=== PATIENT | male | born 1995 | race Caucasian/White ===

== ENCOUNTER 2018-05-26 17:24 | Emergency (ER) | payer BC, OTHER ==
[2018-05-26 17:37] VITALS: RESP 16; TEMP 97.8
[2018-05-26] MEDS ORDERED: PANTOPRAZOLE 40 MG/10 ML VIAL IVP STA (18:04)
[2018-05-26] MEDS ORDERED: SODIUM CHLORIDE 0.9% 1,000 ML IV STA (18:04)
[2018-05-26] MEDS ORDERED: KETOROLAC 30 MG/ML 1 ML VIAL IVP STA (18:04)
[2018-05-26] MEDS ORDERED: MAG HYDROX/AL HYDROX/SIMETH 30 ML, HYOSCYAMINE ELIXIR 10 ML, CIMETIDINE HCL 300 MG, LID... PO STA ×4 (18:05)
--- NOTE | 2018-05-26 18:16 | ED ---
General Adult HPI - General Chief complaint: Abdominal Pain Stated complaint: abdominal pain Time Seen by Provider: 05/26/18 17:45 Source: patient Mode of arrival: ambulatory Limitations: no limitations - History of Present Illness Initial comments: 23-year-old male with history of asthma presents to the emergency department for a chief complaint of epigastric pain 24 hours. Patient states this pain started yesterday. Patient states he had an ulcer as a child and states this feels similar to an ulcer in the past. Patient states he went to [facility] and was given a prescription for Bentyl and Zantac but did not take it because he was not familiar with these medications and presented to the emergency department instead. Patient denies nausea or vomiting. Patient describes the pain as a burning pain in nature in the epigastric area. He currently rates the pain as a 4 out of 10. He denies chest pain or any lower abdominal pain. Patient does admit that once he gets hungry he starts to have increased pain. He states that if he eats acidic foods he also adds increased pain. Patient states laying still helps with the pain. Patient denies any lower abdominal pain. Patient does have a history of appendectomy. Patient denies any previous complications with gallbladder. Patient has no other complaints at this time including shortness of breath, chest pain, nausea or vomiting, headache, or visual changes. - Related Data Previous Rx's Medication Instructions Recorded Famotidine [Pepcid] 20 mg PO BID 20 Days tablet 05/26/18 Allergies Allergy/AdvReac Type Severity Reaction Status Date / Time No Known Allergies Allergy Verified 05/26/18 17:45 Review of Systems ROS Statement: Those systems with pertinent positive or pertinent negative responses have been documented in the HPI. ROS Other: All systems not noted in ROS Statement are negative. Past Medical History Past Medical History: Asthma Additional Past Medical History / Comment(s): ulcers History of Any Multi-Drug Resistant Organisms: None Reported Past Surgical History: Appendectomy Past Psychological History: No Psychological Hx Reported Smoking Status: Never smoker Past Alcohol Use History: None Reported Past Drug Use History: Marijuana General Exam Limitations: no limitations General appearance: alert, in no apparent distress Head exam: Present: atraumatic, normocephalic, normal inspection Eye exam: Present: normal appearance, PERRL, EOMI. Absent: scleral icterus, conjunctival injection, periorbital swelling ENT exam: Present: normal exam, mucous membranes moist Neck exam: Present: normal inspection, full ROM. Absent: tenderness, meningismus, lymphadenopathy Respiratory exam: Present: normal lung sounds bilaterally. Absent: respiratory distress, wheezes, rales, rhonchi, stridor Cardiovascular Exam: Present: regular rate, normal rhythm, normal heart sounds. Absent: systolic murmur, diastolic murmur, rubs, gallop, clicks GI/Abdominal exam: Present: soft, tenderness (Minimal epigastric tenderness without rebound or guarding. Negative Nunez sign. No right upper quadrant tenderness noted. No lower abdominal tenderness noted.), normal bowel sounds. Absent: distended, guarding, rebound, rigid Course Vital Signs 05/26/18 05/26/18 17:35 19:25 Temperature 97.8 F Pulse Rate 93 71 Respiratory 16 16 Rate Blood Pressure 122/75 125/73 O2 Sat by Pulse 97 100 Oximetry Medical Decision Making - Medical Decision Making 43-year-old male with a history of ulcer presents to the emergency department for a chief complaint of epigastric pain 24 hours. Patient has not taken any antacids and did not take the prescriptions at [facility] had prescribed about an hour ago. Patient states the pain is worse after eating acidic foods. He denies any lower abdominal pain. Vitals are stable. Exam is unremarkable patient does have minimal epigastric tenderness without guarding. Negative Nunez sign. CBC and CMP are unremarkable. Amylase and lipase are within normal limits. X-ray shows no sign of pneumoperitoneum. Ultrasound shows a negative right upper quadrant abdominal sonogram without gallstones or dilated ducts. Patient was given Protonix and GI cocktail which did help with his pain. Patient will be discharged home with GI follow-up and prescription for Pepcid. He will return if he has any worsening symptoms. - Lab Data Result diagrams: 05/26/18 18:20 05/26/18 18:20 Lab Results 05/26/18 05/26/18 Range/Units 18:20 18:20 WBC 9.7 (3.8-10.6) k/uL RBC 4.90 (4.30-5.90) m/uL Hgb 15.3 (13.0-17.5) gm/dL Hct 45.2 (39.0-53.0) % MCV 92.2 (80.0-100.0) fL MCH 31.2 (25.0-35.0) pg MCHC 33.8 (31.0-37.0) g/dL RDW 12.3 (11.5-15.5) % Plt Count 237 (150-450) k/uL Neutrophils % 70 % Lymphocytes % 22 % Monocytes % 4 % Eosinophils % 2 % Basophils % 1 % Neutrophils # 6.8 (1.3-7.7) k/uL Lymphocytes # 2.2 (1.0-4.8) k/uL Monocytes # 0.4 (0-1.0) k/uL Eosinophils # 0.2 (0-0.7) k/uL Basophils # 0.1 (0-0.2) k/uL Sodium 140 (137-145) mmol/L Potassium 4.1 (3.5-5.1) mmol/L Chloride 104 (98-107) mmol/L Carbon Dioxide 27 (22-30) mmol/L Anion Gap 9 mmol/L BUN 15 (9-20) mg/dL Creatinine 0.76 (0.66-1.25) mg/dL Est GFR (CKD-EPI)AfAm >90 (>60 ml/min/1.73 sqM) Est GFR (CKD-EPI)NonAf >90 (>60 ml/min/1.73 sqM) Glucose 88 (74-99) mg/dL Calcium 9.4 (8.4-10.2) mg/dL Total Bilirubin 0.8 (0.2-1.3) mg/dL AST 28 (17-59) U/L ALT 31 (21-72) U/L Alkaline Phosphatase 53 (38-126) U/L Total Protein 7.1 (6.3-8.2) g/dL Albumin 4.3 (3.5-5.0) g/dL Amylase 69 (30-110) U/L Lipase 273 (23-300) U/L Disposition Clinical Impression: Epigastric pain Disposition: HOME SELF-CARE Condition: Good Instructions: Gastritis (ED) Additional Instructions: Please take Pepcid as directed. Please follow up with GI in 1-2 days. Please return immediately to the emergency department if you have any worsening symptoms. Prescriptions: Famotidine [Pepcid] 20 mg PO BID 20 Days tablet Is patient prescribed a controlled substance at d/c from ED?: No Referrals: lAvarez Lau Jr, DO [Primary Care Provider] - 1-2 days Bob Lisa MD [STAFF PHYSICIAN] - 1-2 days Time of Disposition: 19:50
[2018-05-26 18:39] LABS: Basophils # (A) 0.1 k/uL (0-0.2); Basophils % (A) 1 %; Eosinophils # (A) 0.2 k/uL (0-0.7); Eosinophils % (A) 2 %; HCT 45.2 % (39.0-53.0); HGB 15.3 gm/dL (13.0-17.5); Lymphocytes # (A) 2.2 k/uL (1.0-4.8); Lymphocytes % (A) 22 %; MCH 31.2 pg (25.0-35.0); MCHC 33.8 g/dL (31.0-37.0); MCV 92.2 fL (80.0-100.0); Monocytes # (A) 0.4 k/uL (0-1.0); Monocytes % (A) 4 %; Neutrophils # (A) 6.8 k/uL (1.3-7.7); Neutrophils % (A) 70 %; Platelet Count 237 k/uL (150-450); RDW 12.3 % (11.5-15.5); WBC 9.7 k/uL (3.8-10.6)
[2018-05-26 18:46] LABS: ALT 31 U/L (21-72); AST 28 U/L (17-59); Albumin 4.3 g/dL (3.5-5.0); Alkaline Phosphatase 53 U/L (38-126); Amylase 69 U/L (30-110); Anion Gap 9 mmol/L; Blood Urea Nitrogen 15 mg/dL (9-20); Calcium 9.4 mg/dL (8.4-10.2); Carbon Dioxide 27 mmol/L (22-30); Chloride 104 mmol/L (98-107); Glucose 88 mg/dL (74-99); Lipase 273 U/L (23-300); Potassium 4.1 mmol/L (3.5-5.1); Sodium 140 mmol/L (137-145); Total Bilirubin 0.8 mg/dL (0.2-1.3); Total Protein 7.1 g/dL (6.3-8.2)
--- NOTE | 2018-05-26 18:55 | XR ---
EXAMINATION TYPE: XR abdomen 2V DATE OF EXAM: 05/26/2018 COMPARISON: 02/05/2015 HISTORY: Abdominal pain TECHNIQUE: 2 views upright and supine FINDINGS: There is no sign of intestinal obstruction or pneumoperitoneum. Fecal pattern is normal. Roma ng bases are clear. There are no pathologic calcifications over the kidneys. IMPRESSION: Nonacute abdomen. No change.
--- NOTE | 2018-05-26 18:59 | US ---
EXAMINATION TYPE: US gallbladder DATE OF EXAM: 05/26/2018 COMPARISON: NONE CLINICAL HISTORY: Pain. Burning sensation in abdomen EXAM MEASUREMENTS: Liver Length: 14.6 cm Gallbladder Wall: 0.2 cm CBD: 0.4 cm Right Kidney: 10.0 x 4.1 x 4.9 cm Pancreas: Tail obscured by overlying bowel gas, visualized portions wnl Liver: wnl Gallbladder: wnl Evidence for sonographic Nunez's sign: No CBD: wnl Right Kidney: No hydronephrosis or masses seen IMPRESSION: Negative right upper quadrant abdominal sonogram. No gallstones or dilated ducts.
[2018-05-26 19:27] VITALS: BP 125/73; PULSE 71
[2018-05-26] MEDS ORDERED: FAMOTIDINE 20 MG/2 ML VIAL IV STA (19:57)
== END 2018-05-26 20:23 | disposition home or self-care (01) ==
LOC: EC 17:24
DX: R10.13 Epigastric pain (principal); Z87.19 Personal history of other diseases of the digestive system; Z90.49 Acquired absence of other specified parts of digestive tract
CPT/HCPCS: 99284; 96374; 96375; 96361; 36415; 80053; 82150; 83690; 85025; 74019; 76705; C9113

== ENCOUNTER → 2020-11-19 | Outpatient (CLI) | payer BC ==
[2020-11-19 23:19] LABS: Basophils # (A) 0.06 X 10*3/uL (0.00-0.10); Basophils % (A) 0.7 %; Eosinophils # (A) 0.36 X 10*3/uL (0.04-0.35); HCT 46.9 % (39.6-50.0); HGB 15.8 g/dL (13.0-17.0); Lymphocytes # (A) 2.82 X 10*3/uL (0.90-5.00); Lymphocytes % (A) 31.1 %; MCH 31.1 pg (27.0-32.0); MCHC 33.7 g/dL (32.0-37.0); MCV 92.3 fL (80.0-97.0); Mean Platelet Volume 10.6 fL (9.5-12.2); Monocytes % (A) 7.7 %; Neutrophils % (A) 56.1 %; Platelet Count 271 X 10*3/uL (140-440); RBC 5.08 X 10*6/uL (4.40-5.60); RDW 12.3 % (11.5-14.5); WBC 9.08 X 10*3/uL (4.50-10.00)
[2020-11-21 08:45] LABS: Angiotensin-1 Converting Enz. 27 U/L (8-52)
[2020-11-21 14:11] LABS: HLA B27 NEGATIVE
== END | disposition home or self-care (01) ==
LOC: LABWHC1 16:37
PROVIDERS: ATTEND Ophthalmology
DX: H30.93 Unspecified chorioretinal inflammation, bilateral (principal)
CPT/HCPCS: 36415; 82164; 85025; 86618; 86780; 86812

== ENCOUNTER → 2021-01-17 | Outpatient (CLI) | payer BC ==
--- NOTE | 2021-01-18 08:16 | XR ---
EXAMINATION TYPE: XR chest 2V DATE OF EXAM: 01/17/2021 COMPARISON: NONE HISTORY: Uveitis TECHNIQUE: Frontal and lateral views of the chest are obtained. FINDINGS: There is no focal air space opacity, pleural effusion, or pneumothorax seen. The cardiac silhouette size is within normal limits. The osseous structures are intact. IMPRESSION: No acute cardiopulmonary process.
== END | disposition home or self-care (01) ==
LOC: RADXRMAIN 18:25
PROVIDERS: ATTEND Ophthalmology
DX: H20.9 Unspecified iridocyclitis (principal)
CPT/HCPCS: 71046